=== PATIENT | female | born 1965 | race Hispanic/Latino ===

== ENCOUNTER 2023-11-27 17:37 | Inpatient (IN) | payer SELFPAY ==
--- OUTSIDE RECORDS SUMMARY | 2023-11-27 17:43 | XMS REPORT | Continuity of Care Document ---
Author Name Unknown Address [address] [facility] [address] [place] [address] [facility] Address [address] [facility] [place] [address] Care Team Providers Care Imaging Technologist Name Role Phone STACEY SYKES Primary Care Physician Unav ailable ALYSON BOURGEOIS Attending Clinician Unavailable BRUCE REED Attending Clinician Unavailable CATHY LOCO Attending Clinician Unavailable [email or web address]_S Attending Clinician Unavaila ble RADIOLOGY Attending Clinician Unavailable Radiology Attending Clinician Unavailable Doctor Unassigned, [place] Attending Clinician U navailable Stacey Bae Attending Clinician + TOMASZ SAAVEDRA Attending Clinician Unavailable LAB90 Attending Clinician Unavailable Pgy3 Attending Clinician Unavailable Dominga Aguirre MD Attending Clinician [phone] DOMINGA AGUIRRE Attending Clinician Unavailable Pham Short Attending Clinician [phone] PHAM REDDING Attending Clinician Unavailabl e STACEY SYKES Attending Clinician Unavail able Naya Moore Attending Clinician [phone] NAYA HOWARD Attending Clinician Unavailable Tony VELIZ, Catrina Carrillo Attending Clinician [phone] Trimester, [facility] Res-1st Attending Clinician Unavailable Dasha Rojas MD Attending Clinician [phone] Med PRICE, Yanni Williamson Attending Clinician Unav ailable Only, Adc Test Attending Clinician Unavailable Alyson Bourgeois MD Attending Clinician [phone] Latha Guzman Attending Clinician [phone] [facility] Unavailab Tommy VELIZ, Ximena Attending Clinician [phone] ALYSON BOURGEOIS Admitting Clinician Unavailable [email or web address]_S Admitting Clinician UnavailCELENA Grady Admitting Clinician Dwight graham Payers Payer Name Policy Type Policy Number Effective Date Expirati on Date Source [facility] [id number] 2018 00:00:00 [employer] [id number] 2022 00:00:00 Problems Condition Name Condition Details Condition Category Status Onset Date Resolution Date Last Treatment Date Treating Clinician Comments Source Hypothyroi dism Hypothyroi dism Disease Active 4-12 00:00: 00 Ximena Seybold - Externa l Pain pelvic Pain pelvic Disease Active 9-17 00:00: 00 [facility] Other general counseling and advice for contracept david management Other general counseling and advice for contracept david management Disease Active 8-31 00:00: 00 [facility] Fibroid Fibroid Disease Active 8-31 00:00: 00 [facility] Screening for colorectal cancer Screening for colorectal cancer Disease Active 7-29 00:00: 00 Overview: Formattin g of this note might be different from the original. Added automatic ally from request for surgery [id number] [facility] Obesity (BMI 30-39.9) Obesity (BMI 30-39.9) Disease Active 08-19 00:00: 00 [facility] Presence of intrauteri ne contracept david device Presence of intrauteri ne contracept david device Disease Active 08-19 00:00: 00 [facility] Allergies, Adverse Reactions, Alerts Allergy Name Allergy Type Status Severity Reaction(s) Onset Date Inactive Date Treating Clinician Comments Source NO KNOWN ALLERGIE S Drug Class Active [facility] Social History Social Habit Start Date Stop Date Quantity Comments Source History of tobacco use Cigarette Smoker Ximena Judy flores - External Exposure to SARS-CoV-2 (event) Not sure [facility] Gender identity [facility] Alcohol intake 2023-05-29 00:00:00 2023-05-29 00:00:00 Lifetime non-drinker (finding) Ximena Baxter - External Tobacco use and exposure 2022-09-25 00:00:00 2022-09-25 00:00:00 Smokeless tobacco non-user Ximena Baxter - External History of Social function 2021-01-29 00:00:00 2021-01-29 00:00:00 [facility] Sex Assigned At 1965 00:00:00 1965 00:00:00 Ximena Baxter - External Smoking Status Start Date Stop Date Source Ex-smoker 2022-09-25 00:00:00 2022-09-25 00:00:00 Keyana azevedo Sahil - External Never smoked tobacco [facility] Medications Ordered Medication Name Filled Medication Name Start Date Stop Date Current Medication? Ordering Clinician Indication Dosage Frequency Signature (SIG) Comments Components Source Diethylprop ion HCl CR 75 MG oral TABLET SR 24 HR 2022-06 13:41: 23 05-29 00:00 :00 No every 24 hours Ximena williamson Cholecalcif lance (Vitamin D) 50 MCG (2000 UT) oral Capsule 2022-06 13:31: 02 Yes 2000U 1 capsule (2,000 units total). Ximena williamson Ibuprofen (MOTRIN) 800 MG oral Tablet 2022-06 13:31: 02 Yes every 8 hours Ximena williamson Semaglutide -Weight Management (Wegovy) 1.7 MG/0.75ML subcutaneou s Solution Auto-inject or 2022-06 00:00: 00 Yes [id number] 1.7mg Inject 1.7 mg into the skin once a week. Ximena williamson Levothyroxi ne Sodium 25 MCG oral Tablet 2022-06 2-08 00:00: 00 Yes [id number] 25ug Take 1 tablet (25 mcg total) by mouth daily. Ximena williamson Mounjaro 10 MG/0.5ML subcutaneou s Solution Pen-injecto r 2022-06 1-16 00:00: 00 05-29 00:00 :00 No INJECT 1 INJECTION INTO THE SKIN ONCE A WEEK FOR 4 WEEKS. Ximena williamson Cholecalcif lance (Vitamin D) 50 MCG (1999 UT) oral Capsule 02-18 09:37: 52 Yes 2000U 1 capsule (2,000 units total). Ximena williamson Diethylprop ion HCl CR 75 MG oral TABLET SR 24 HR 02-18 09:37: 52 Yes every 24 hours Ximena williamson Ibuprofen (MOTRIN) 800 MG oral Tablet 02-18 09:37: 52 Yes every 8 hours Ximena williamson Semaglutide -Weight Management (Wegovy) 1.7 MG/0.75ML subcutaneou s Solution Auto-inject or 02-18 00:00: 00 05-29 00:00 :00 No [id number] 1.7mg Inject 1.7 mg into the skin once a week. Ximena williamson hydrOXYzine HCl 25 MG oral Tablet 8-23 00:00: 00 05-29 00:00 :00 No Ximena williamson Mounjaro 7.5 MG/0.5ML subcutaneou s Solution Pen-injecto r 11-19 00:00: 00 02-18 00:00 :00 No Ximena williamson Tirzepatide (Mounjaro) 2.5 MG/0.5ML subcutaneou s Solution Pen-injecto r 05 09:02: 12 11-18 00:00 :00 No See Admin Instructio ns Ximena williamson Cholecalcif lance (Vitamin D) 50 MCG (2000 UT) oral Capsule 11-18 09:02: 10 Yes 2000U 1 capsule (2,000 units total) Ximena williamson Diethylprop ion HCl CR 75 MG oral TABLET SR 24 HR 11-18 09:02: 10 Yes every 24 hours Ximena williamson Ibuprofen (MOTRIN) 800 MG oral Tablet 11-18 09:02: 10 Yes every 8 hours Ximena williamson Ondansetron HCl 4 MG oral Tablet 11-18 00:00: 00 Yes [id number] 4mg [id number] 3D Take 1 tablet (4 mg total) by mouth every 8 hours as needed for nausea Ximena williamson Semaglutide -Weight Management (Wegovy) 1 MG/0.5ML subcutaneou s Solution Auto-inject or 11-18 00:00: 00 02-18 00:00 :00 No [id number] 1mg Inject 1 mg into the skin once a week Ximena williamson Mounjaro 5 MG/0.5ML subcutaneou s Solution Pen-injecto r 11-18 00:00: 00 02-18 00:00 :00 No Ximena williamson Semaglutide -Weight Management (Wegovy) 0.5 MG/0.5ML subcutaneou s Solution Auto-inject or 11 00:00: 00 11-18 00:00 :00 No [id number] .5mg Inject 0.5 mg into the skin once a week Ximena williamson Metoclopram yessi HCl 10 MG oral Tablet 10-10 00:00: 00 Yes Ximena williamson Na Sulfate-K Sulfate-Mg Sulf (SUPREP BOWEL PREP KIT) 17.5-3.13-1 .6 GM/177ML oral Solution 10-10 00:00: 00 Yes Ximena williamson Vitamin D, Ergocalcife rol, 1.25 MG (66881 UT) oral Capsule 2023-0 4-18 00:00: 00 Yes [id number] 93119M Take 1 capsule (50,000 units total) by mouth once a week Ximena williamson Nitrofurant oin Monohyd Macro 100 MG oral Capsule 09-29 00:00: 00 02-18 00:00 :00 No Ximena williamson LEVOTHYROXI NE SODIUM OR 09-26 08:25: 42 09-26 00:00 :00 No Take by mouth Ximena williamson Ondansetron (ZOFRAN) 4 MG oral TABLET DISPERSIBLE 09-26 00:00: 00 Yes Ximena williamson Diethylprop ion HCl CR 75 MG oral TABLET SR 24 HR 09-26 00:00: 00 Yes [id number] 1{tbl} Take 1 tablet by mouth daily Ximena williamson Tirzepatide (Mounjaro) 2.5 MG/0.5ML subcutaneou s Solution Pen-injecto r 09-26 00:00: 00 11-18 00:00 :00 No [id number] 2.5mg Inject 0.5 mL (2.5 mg total) into the skin once a week Ximena williamson Ibuprofen (MOTRIN) 800 MG oral Tablet 09-02 00:00: 00 Yes Ximena williamson Levothyroxi ne Sodium 25 MCG oral Tablet 09-02 00:00: 00 Yes Ximena williamson norethindro ne 0.35 mg tablet 2020-06 00:00: 00 Yes [id number] .35mg Take 1 tablet by mouth daily. [facility] norethindro ne 0.35 mg tablet 02-26 00:00: 00 05-28 00:00 :00 No [id number] .35mg Take 1 tablet by mouth daily. [facility] Immunizations Ordered Immunization Name Filled Immunization Name Date Status Comments Source Shingles IM (Shingrix) 2022-11-18 00:00:00 Completed Ximena Huddleston Shingles IM (Shingrix) 2022-11-18 00:00:00 Completed Ximena Kimold - External Covid-19 Vaccine Moderna (Spikevax), Mrna-lnp, Nir Protein, Pf 2021-07-14 00:00:00 Completed Ximena Mcmahanybold - External Covid-19 Vaccine Moderna (Spikevax), Mrna-lnp, Nir Protein, Pf 2021-02-10 00:00:00 Completed Ximena Kimold - External Covid-19 Vaccine Moderna (Spikevax), Mrna-lnp, Nir Protein, Pf 2021-01-13 00:00:00 Completed Ximena Kimold - External Covid-19 Vaccine Moderna (Spikevax), Mrna-lnp, Nir Protein, Pf 2021-01-13 00:00:00 Completed Ximena Baxter - External Influenza, Seasonal, Injectable 2020-04-04 00:00:00 Completed Ximena Baxter - External Influenza, Seasonal, Injectable 2020-04-04 00:00:00 Completed Ximena Baxter - External Tdap- (Boostrix, Adacel) 2018-02-12 00:00:00 Completed Ximena Mcmahanybold - External Tdap- (Boostrix, Adacel) 2018-02-12 00:00:00 Completed Ximena Baxter - External Rubella 2008-10-24 00:00:00 Completed Ximena Kimold - External Rubella 2008-10-24 00:00:00 Completed Ximena Kimold - External Rubella 2008-10-24 00:00:00 Completed Ximena Kimold - External Rubella 2008-10-24 00:00:00 Completed Ximena Mcmahanybold - External Rubella 2008-10-24 00:00:00 Completed [facility] Rubella 2008-10-24 00:00:00 Completed [facility] Rubella 2008-10-24 00:00:00 Completed [facility] Rubella 2008-10-24 00:00:00 Completed [facility] Rubella 2008-10-24 00:00:00 Completed [facility] Rubella 2008-10-24 00:00:00 Completed [facility] Td (adult) 2008-06-16 00:00:00 Completed Ximena Seybold - External Td (adult) 2008-06-16 00:00:00 Completed Ximena Mcmahanybold - External Td (adult) 2008-06-16 00:00:00 Completed Ximena Mcmahanybold - External Td (adult) 2008-06-16 00:00:00 Completed Ximena ybold - External Td 2008-06-16 00:00:00 Completed [facility] TD, NOS 2008-06-16 00:00:00 Completed [facility] TD, NOS 2008-06-16 00:00:00 Completed [facility] TD, NOS 2008-06-16 00:00:00 Completed [facility] TD, NOS 2008-06-16 00:00:00 Completed [facility] TD, NOS 2008-06-16 00:00:00 Completed [facility] Td (adult) Unknown Completed Ximena Mcmahan ybold - External Rubella Unknown Completed Ximena ulloa - External Shingles IM (Shingrix) Unknown Completed Ximena Mcmahanybold - External Influenza, Seasonal, Injectable Unknown Completed Ximena ybold - External Covid-19 Vaccine Moderna (Spikevax), Mrna-lnp, Nir Protein, Pf Unknown Completed Ximena ybold - External Tdap- (Boostrix, Adacel) Unknown Completed Ximena Mcmahanybold - External Covid-19 Vaccine Moderna (Spikevax), Mrna-lnp, Nir Protein, Pf Unknown Completed Ximena Mcmahanybold - External Covid-19 Vaccine Moderna (Spikevax), Mrna-lnp, Nir Protein, Pf Unknown Completed Ximena ybold - External Vital Signs Vital Name Observation Time Observation Value Comments S ource Systolic blood pressure 2023-05-29 19:28:00 98 mm[Hg] Ximena Kimo ld - External Diastolic blood pressure 2023-05-29 19:28:00 60 mm[Hg] Ximena Kimo ld - External Heart rate 2023-05-29 19:28:00 72 /min Terrence Baxter - External Body temperature 2023-05-29 19:28:00 36.83 Caro Ximena Mcmahanybold - External Respiratory rate 2023-05-29 19:28:00 16 /min Ximena Mcmahanybold - External Body height 2023-05-29 19:28:00 160 cm Morena ey Seybold - External Body weight 2023-05-29 19:28:00 80.343 kg Morena ey Seybold - External BMI 2023-05-29 19:28:00 31.38 kg/m2 Morena ey Seybold - External Oxygen saturation in Arterial blood by Pulse oximetry 2023-05-29 19:28:00 98 /min Ximena Seybo ld - External Systolic blood pressure 2023-02-18 14:36:00 94 mm[Hg] Ximena Seybo ld - External Diastolic blood pressure 2023-02-18 14:36:00 62 mm[Hg] Ximena Seybo ld - External Heart rate 2023-02-18 14:36:00 74 /min Kelse y Seybold - External Body temperature 2023-02-18 14:36:00 37.06 Caro Ximena Seybold - External Respiratory rate 2023-02-18 14:36:00 15 /min Ximena Seybold - External Body height 2023-02-18 14:36:00 160 cm Morena ey Seybold - External Body weight 2023-02-18 14:36:00 86.637 kg Morena ey Seybold - External BMI 2023-02-18 14:36:00 33.83 kg/m2 Morena ey Seybold - External Oxygen saturation in Arterial blood by Pulse oximetry 2023-02-18 14:36:00 99 /min Ximena Seybo ld - External Systolic blood pressure 2022-11-18 13:58:00 104 mm[Hg] Ximena Seybo ld - External Diastolic blood pressure 2022-11-18 13:58:00 50 mm[Hg] Ximena Seybo ld - External Heart rate 2022-11-18 13:58:00 77 /min Kelse y Seybold - External Body temperature 2022-11-18 13:58:00 35.56 Caro Ximena Seybold - External Respiratory rate 2022-11-18 13:58:00 14 /min Ximena Seybold - External Body height 2022-11-18 13:58:00 160 cm Morena ey Seybold - External Body weight 2022-11-18 13:58:00 89.812 kg Morena ey Seybold - External BMI 2022-11-18 13:58:00 35.07 kg/m2 Morena ey Seybold - External Systolic blood pressure 2022-10-24 13:21:00 98 mm[Hg] Ximena Seybo ld - External Diastolic blood pressure 2022-10-24 13:21:00 66 mm[Hg] Ximena Seybo ld - External Heart rate 2022-10-24 13:21:00 80 /min Kelse y Seybold - External Body temperature 2022-10-24 13:21:00 36.28 Caro Ximena Seybold - External Respiratory rate 2022-10-24 13:21:00 14 /min Ximena Seybold - External Body height 2022-10-24 13:21:00 160 cm Morena ey Seybold - External Body weight 2022-10-24 13:21:00 92.987 kg Morena ey Seybold - External BMI 2022-10-24 13:21:00 36.31 kg/m2 Morena ey Seybold - External Systolic blood pressure 2022-09-26 13:22:00 100 mm[Hg] Ximena Seybo ld - External Diastolic blood pressure 2022-09-26 13:22:00 72 mm[Hg] Ximena Seybo ld - External Heart rate 2022-09-26 13:22:00 69 /min Kelse y Seybold - External Body temperature 2022-09-26 13:22:00 36.17 Caro Ximena Seybold - External Respiratory rate 2022-09-26 13:22:00 14 /min Ximena Seybold - External Body height 2022-09-26 13:22:00 160 cm Morena ey Seybold - External Body weight 2022-09-26 13:22:00 94.802 kg Morena ey Seybold - External BMI 2022-09-26 13:22:00 37.02 kg/m2 Morena ey Seybold - External Systolic blood pressure 2021-05-28 21:10:00 108 mm[Hg] [facility] Diastolic blood pressure 2021-05-28 21:10:00 74 mm[Hg] [facility] Heart rate 2021-05-28 21:10:00 71 /min [facility] Body temperature 2021-05-28 21:10:00 36 Caro [facility] Respiratory rate 2021-05-28 21:10:00 18 /min [facility] Body height 2021-05-28 21:10:00 157.5 cm [facility] Body weight 2021-05-28 21:10:00 90.175 kg [facility] BMI 2021-05-28 21:10:00 36.36 kg/m2 [facility] Procedures Procedure Date / Time Performed Performing Clinicia n Source ASSIGNMENT OF BENEFITS 2023-02-06 14:23:31 Docto r Unassigned, [place] [facility] REFERRAL- REQUEST/RESPONSE 2022-10-16 05:01:00 Doctor Unassigned, [place] [facility] Encounters Start Date/Time End Date/Time Encounter Type Admission Type Attending [facility] Care Department Encounter ID Source 2021-04-17 09:18:23 Outpatient R ALYSON BOURGEOIS [facility] [id number] [facility] 2023-08-28 09:30:00 2023-08-28 09:30:00 Outpatient BRUCE REED [id number] Ximena [facility] 2023-06-16 00:00:00 2023-06-16 00:00:00 Outpatient BRUCE REED [id number] Ximena [facility] 2023-05-29 13:30:00 2023-05-29 13:30:00 Outpatient BRUCE REED [id number] [facility] 2023-05-22 14:00:00 2023-05-22 14:00:00 Outpatient BRUCE REED [id number] Ximena [facility] 2023-05-22 00:00:00 2023-05-22 00:00:00 Outpatient CATHY LOCO [id number] Ximena [facility] 2023-05-20 09:30:00 2023-05-20 09:30:00 Outpatient BRUCE REED [id number] Ximena [facility] 2023-05-13 08:07:38 2023-05-13 08:07:38 Outpatient SFA SFA [id number] Alejandro Dennis 2023-04-12 00:00:00 2023-04-12 00:00:00 Outpatient [email or web address] [email or web address]_S [facility] [id number] [facility] 2023-02-26 13:00:00 2023-02-26 13:00:00 Outpatient BRUCE REED [id number] Ximena Baxter 2023-02-18 09:30:00 2023-02-18 09:30:00 Outpatient BRUCE REED [id number] Ximena juan manuel 2023-02-06 09:26:33 2023-02-06 23:59:00 Outpatient R RADIOLOGY [facility] [id number] [facility] 2023-02-06 09:26:33 2023-02-06 23:59:00 Hospital Encounter Radiology [facility] 1..840.114 350.1.13.10 4.2.7.2.686 [id number] [facility] 2023-02-06 00:00:00 2023-02-06 00:00:00 Orders Only Doctor Unassigned, [place] [facility] 1..840.114 350.1.13.10 4.2.7.2.686 [id number] [facility] 2023-02-05 08:00:31 2023-02-05 08:00:31 Outpatient SFA SFA [id number] Alejandro Dennis 2022-11-28 00:00:00 2022-11-28 00:00:00 Outpatient DEREK BRUCE WATTERS [id number] Ximena juan manuel 2022-11-27 00:00:00 2022-11-27 00:00:00 Telephone Stacey Sykes [facility] 1.2.840.114 350.1.13.10 4.2.7.2.686 [id number] [facility] 2022-11-18 09:30:00 2022-11-18 09:30:00 Outpatient BRUCE REED [id number] Ximena Baxter 2022-11-04 08:49:23 2022-11-04 08:49:23 Outpatient SFA SFA [id number] Alejandro Dennis 2022-10-29 07:42:15 2022-10-29 23:59:00 Outpatient R RADIOLOGY [facility] [id number] [facility] 2022-10-29 07:42:15 2022-10-29 23:59:00 Hospital Encounter Radiology [facility] 1.2.840.114 350.1.13.10 4.2.7.2.686 [id number] [facility] 2022-10-24 08:30:00 2022-10-24 08:30:00 Outpatient BRUCE REED [id number] Ximena [facility] 2022-10-16 00:00:00 2022-10-16 00:00:00 Orders Only Doctor Unassigned, [place] [facility] 1.2.840.114 350.1.13.10 4.2.7.2.686 [id number] [facility] 2022-10-03 00:00:00 2022-10-03 00:00:00 Outpatient TOMASZ SAAVEDRA [facility] [id number] 668 [facility] 2022-10-01 00:00:00 2022-10-01 00:00:00 Outpatient CATHY LOCO [id number] Ximena Baxter 2022-09-29 00:00:00 2022-09-29 00:00:00 Outpatient BRUCE REED [id number] Ximena Baxter 2022-09-26 09:25:00 2022-09-26 09:25:00 Outpatient LAB90 XIMENA WATTERS [id number] Ximena Baxter 2022-09-26 08:30:00 2022-09-26 08:30:00 Outpatient BRUCE REED [id number] Ximenarena Baxter 2022-09-02 08:04:56 2022-09-02 08:04:56 Outpatient [facility] [id number] Alejandro Dennis 2022-07-08 08:42:30 2022-07-08 08:42:30 Outpatient [facility] [id number] Alejandro Dennis 2022-06-24 15:16:27 2022-06-24 15:16:27 Outpatient [facility] [id number] Alejandro Dennis 2021-05-28 15:00:00 2021-05-28 16:49:44 Office Visit Pgy3 Dominga Aguirre [facility] 1.840.114 350.1.13.10 4.2.7.2.686 [id number] [facility] 2021-05-28 15:00:00 2021-05-28 16:49:44 Outpatient R DOMINGA AGUIRRE [facility] [id number] [facility] 2021-05-28 15:00:00 2021-05-28 15:00:00 Outpatient R DOMINGA AGUIRRE [facility] [id number] [facility] 2021-04-20 08:00:00 2021-04-20 08:00:00 Outpatient R ALYSON BOURGEOIS [facility] [id number] [facility] 2021-04-03 08:38:56 2021-04-03 23:59:00 Hospital Encounter WilfrdeoPham Pascale [facility] 1.2.840.114 350.1.13.10 4.2.7.2.686 [id number] [facility] 2021-04-03 08:37:50 2021-04-03 08:37:50 Hospital Encounter WilfredoPham Pascale [facility] 1.2.840.114 350.1.13.10 4.2.7.2.686 [id number] [facility] 2021-04-03 00:00:00 2021-04-03 00:00:00 Outpatient R PHAM REDDING [facility] [id number] [facility] 2021-03-28 00:00:00 2021-03-28 00:00:00 Telephone Pham Redding [facility] [employer]CHIT[facility] 1..840.114 350.1.13.10 4.2.7.2.686 [id number] [facility] 2021-03-27 09:10:01 2021-03-27 23:59:00 Hospital Encounter Stacey Sykes [facility] 1..840.114 350.1.13.10 4.2.7.2.686 [id number] [facility] 2021-03-27 09:00:00 2021-03-27 09:09:00 Hospital Encounter Stacey Sykes [facility] 1..840.114 350.1.13.10 4.2.7.2.686 [id number] [facility] 2021-03-27 00:00:00 2021-03-27 00:00:00 Outpatient R STACEY SYKES [facility] [id number] [facility] 2021-03-06 09:29:37 2021-03-06 10:08:51 Office Visit Naya Howard [facility] 1..840.114 350.1.13.10 4.2.7.2.686 [id number] [facility] 2021-03-06 09:30:00 2021-03-06 09:30:00 Outpatient R NAYA HOWARD [facility] [id number] [facility] 2021-03-06 00:00:00 2021-03-06 00:00:00 Prep [facility] 1.840.114 350.1.13.10 4.2.7.2.686 [id number] [facility] 2021-02-27 10:00:00 2021-02-27 10:00:00 Outpatient R NAYA HOWARD [facility] [id number] [facility] 2021-02-26 15:30:00 2021-02-26 15:30:00 Outpatient R [facility] [id number] [facility] 2021-02-26 13:40:02 2021-02-26 14:57:44 Office Visit Pgy3 Catrina Jimenez [facility] 1.0.114 350.1.13.10 4.2.7.2.686 [id number] [facility] 2021-02-26 13:40:02 2021-02-26 14:57:44 Office Visit Pgy3 Catrina Jimenez [facility] 1.840.114 350.1.13.10 4.2.7.2.686 [id number] [facility] 2021-02-22 00:00:00 2021-02-22 00:00:00 Telephone Stacey Sykes [facility] [employer] ARCHITECT [facility] 1.840.114 350.1.13.10 4.2.7.2.686 [id number] [facility] 2021-02-22 00:00:00 2021-02-22 00:00:00 Telephone Stacey Sykes [facility] [employer] ARCHITECT [facility] MATERNAL & CHILD [facility] 1.2840.114 350.1.13.10 4.2.7.2.686 [id number] [facility] 2021-02-20 06:36:01 2021-02-20 23:59:00 Hospital Encounter Stacey Sykes [facility] 1.2.840.114 350.1.13.10 4.2.7.2.686 [id number] [facility] 2021-02-20 06:36:01 2021-02-20 23:59:00 Hospital Encounter Stacey Sykes [facility] [id number] [facility] 2021-02-20 00:00:00 2021-02-20 00:00:00 Outpatient R STACEY SYKES [facility] [id number] [facility] 2021-02-13 10:32:13 2021-02-13 11:12:39 Office Visit Stacey Sykes [employer] [facility] [id number] 4.2.7.2.686 [id number] [facility] 2021-02-13 10:32:13 2021-02-13 11:12:39 Office Visit Stacey Sykes [facility] [employer] [facility] 1.2.840.114 350.1.13.10 4.2.7.2.686 [id number] [facility] 2021-02-13 10:45:00 2021-02-13 10:45:00 Outpatient R STACEY SYKES [facility] [id number] [facility] 2021-02-05 13:00:00 2021-02-05 23:59:00 Hospital Encounter Stacey Sykes [facility] 1.2.840.114 350.1.13.10 4.2.7.2.686 [id number] [facility] 2021-02-05 00:00:00 2021-02-05 00:00:00 Outpatient R STACEY SYKES [facility] [id number] [facility] 2021-02-01 00:00:00 2021-02-01 00:00:00 Telephone Stacey Sykes [facility] [employer] [facility] 1..114 350.1.13.10 4.2.7.2.686 [id number] [facility] 2021-01-29 15:05:53 2021-01-29 15:41:29 Office Visit Stacey Sykes [facility] [employer] [facility] 1..114 350.1.13.10 4.2.7.2.686 [id number] [facility] 2021-01-29 15:15:00 2021-01-29 15:15:00 Outpatient R STACEY SYKES [facility] [id number] [facility] 2021-01-29 00:00:00 2021-01-29 00:00:00 Orders Only Doctor Unassigned, [place] [facility] 1..114 350.1.13.10 4.2.7.2.686 [id number] [facility] 2020-04-24 08:32:44 2020-04-24 11:33:39 Office Visit Trimester, [facility] Res-1st Dasha Rojas [facility] 1.114 350.1.13.10 4.2.7.2.686 [id number] [facility] 2020-04-24 08:00:00 2020-04-24 08:00:00 Outpatient R [facility] [id number] [facility] 2020-04-24 00:00:00 2020-04-24 00:00:00 Orders Only Doctor Unassigned, [place] [facility] 1..114 350.1.13.10 4.2.7.2.686 [id number] [facility] 2020-01-31 08:00:00 2020-01-31 08:00:00 Outpatient R [facility] [id number] [facility] 2020-01-19 00:00:00 2020-01-19 00:00:00 Outpatient R STACEY SYKES [facility] [id number] [facility] 2020-01-18 00:00:00 2020-01-18 00:00:00 Letter (Out) [facility] 1.2840.114 350.1.13.10 4.2.7.2.686 [id number] [facility] 2020-01-18 00:00:00 2020-01-18 00:00:00 Telephone Naya Howard [facility] 1.0.114 350.1.13.10 4.2.7.2.686 [id number] [facility] 2020-01-18 00:00:00 2020-01-18 00:00:00 Telephone [facility] 1.2840.114 350.1.13.10 4.2.7.2.686 [id number] [facility] 2020-01-17 09:51:16 2020-01-17 10:06:16 Laboratory Only Only, Adc Test Alyson Bourgeois [facility] 1.2840.114 350.1.13.10 4.2.7.2.686 [id number] [facility] 2020-01-17 09:15:00 2020-01-17 09:15:00 Outpatient R ALYSON BOURGEOIS [facility] [id number] [facility] 2020-01-17 00:00:00 2020-01-17 00:00:00 Telephone Naya Howard [facility] 1..114 350.1.13.10 4.2.7.2.686 [id number] [facility] 2020-01-17 00:00:00 2020-01-17 00:00:00 Telephone Stacey Sykes [facility] 1..114 350.1.13.10 4.2.7.2.686 [id number] [facility] 2020-01-12 00:00:00 2020-01-12 00:00:00 Prep For [facility] 1..114 350.1.13.10 4.2.7.2.686 [id number] [facility] 2020-01-11 13:51:42 2020-01-11 16:48:43 Office Visit Alyson Bourgeois [facility] 1..114 350.1.13.10 4.2.7.2.686 [id number] [facility] 2020-01-11 13:45:00 2020-01-11 13:45:00 Outpatient R ALYSON BOURGEOIS [facility] [id number] [facility] 2020-01-11 00:00:00 2020-01-11 00:00:00 Orders Only Doctor Unassigned, [place] [facility] 1.114 350.1.13.10 4.2.7.2.686 [id number] [facility] 2020-01-10 00:00:00 2020-01-10 00:00:00 Telephone Latha Meadows [facility] 1..114 350.1.13.10 4.2.7.2.686 [id number] [facility] 2020-01-06 13:36:01 2020-01-06 14:20:13 Office Visit Carlos [facility] Resident Ximena Muir [facility] 1..114 350.1.13.10 4.2.7.2.686 [id number] [facility] 2020-01-06 13:00:00 2020-01-06 13:00:00 Outpatient R [facility] [id number] [facility] 2019-12-17 09:02:59 2019-12-17 09:54:43 Office Visit Stacey Sykes [facility] [employer] ARCHITECT [facility] 1.2.840.114 350.1.13.10 4.2.7.2.686 [id number] [facility] 2019-12-17 09:15:00 2019-12-17 09:15:00 Outpatient R STACEY SYKES [facility] [id number] [facility] 2019-12-17 00:00:00 2019-12-17 00:00:00 Orders Only Doctor Unassigned, [place] [facility] 1.2.840.114 350.1.13.10 4.2.7.2.686 [id number] [facility] 2019-12-16 08:15:00 2019-12-16 08:15:00 Outpatient R PHAM REDDING [facility] [id number] [facility] Results Test Description Test Time Test Comments Results Result Co mments Source TSH, THIRD [id number] 05:52:53* Test Item Value Reference Range Interpretation Comme [facility] TSH, THIRD GENERATION (test code = 2821) 2.990 UIU/ML 0.400-4.100 UNLESS OTHERWISE INDICATED, ALL TESTING PERFORMED AT [facility] [employer] [address] [place] [address] LOG SNAKER: CHARLENE SAMPSON M.D. CLIA NUMBER [id number] [facility] [place]. [id number] TSH, THIRD [id number] 06:56:01* Test Item Value Reference Range Interpretation Comme [facility] TSH, THIRD GENERATION (test code = 2821) 3.650 UIU/ML 0.400-4.100 UNLESS OTHERWISE INDICATED, ALL TESTING PERFORMED AT [facility] [address] [place] [address] LOG SNAKER: CHARLENE SAMPSON M.D. CLIA NUMBER [id number] [place]. [id number] OCCULT BLD,FECAL,IMMUNOASSAY [id number] 12:44:20* Test Item Value Reference Range Interpretation Comme nts OCCULT BLD, FECAL (test code = 40752) NEGATIVE NEGATIVE [facility] has important pathology staff changes effective 08/14/2022. New pathology staff will provide uninterrupted, excellent patient care and clinical consultation. See URL: [email or web address]. UNLESS OTHERWISE INDICATED, ALL TESTING PERFORMED AT [facility] [address] [place] [address] LOG SNAKER: CHARLENE SAMPSON M.D. CLIA NUMBER [id number] [place]. [id number] TSH, THIRD [id number] 05:25:24* Test Item Value Reference Range Interpretation Comme nts TSH, THIRD GENERATION (test code = 2821) 4.970 UIU/ML 0.400-4.100 H FREE T4 (THYROXINE)2022-09-03 05:25:24* Test Item Value Reference Range Interpretation Comme nts FREE T4 (THYROXINE) (test code = 2823) 1.12 NG/DL 0.80-1.90 [facility] has impo rtant pathology staff changes effective 08/14/2022. New pathology staff will provide uninterrupted, excellent patient care and clinical consultation. See URL: [email or web address]. UNLESS OTHERWISE INDICATED, ALL TESTING PERFORMED AT [facility] [address] [place] [address] LOG SNAKER: CHARLENE SAMPSON M.D. CLIA NUMBER [id number] [place]. [id number] FREE T4 (THYROXINE)2022-07-09 04:05:47* Test Item Value Reference Range Interpretation Comme nts FREE T4 (THYROXINE) (test code = 2823) 0.99 NG/DL 0.80-1.90 UNLESS OTHERWISE INDICATED, ALL TESTING PERFORMED [facility] PATHOLOGY [employer] [address] [place] [address] LOG SNAKER: LYNNE FUENTES M.D. CLIA NUMBER [id number] [place]. [id number] TSH, THIRD [id number] 06:48:52* Test Item Value Reference Range Interpretation Comme nts TSH, THIRD GENERATION (test code = 2821) 4.710 UIU/ML 0.400-4.100 H UNLESS OTHERWISE INDICATED, ALL TESTING PERFORMED [facility] [employer] [address] [place] [address] LOG SNAKER: LYNNE FUENTES M.D. CLIA NUMBER [id number] [facility] [place]. [id number] CBC W/AUTO DIFF WITH [id number] 03:11:12* Test Item Value Reference Range Interpretation Comme nts WBC (test code = 1001) 8.6 K/UL 3.5-11.0 RBC (test code = 1002) 4.52 M/UL 3.80-5.40 HEMOGLOBIN (test code = 1003) 14.1 G/DL 11.5-15.5 HEMATOCRIT (test code = 1004) 41.0 % 34.0-45.0 MCV (test code = 1005) 90.7 fL 80.0-99.0 MCH (test code = 1006) 31.2 PG 25.0-33.0 MCHC (test code = 1007) 34.4 G/DL 31.0-36.0 RDW (test code = 1038) 13.6 % 11.5-15.0 NEUTROPHILS (test code = 1008) 67.3 % LYMPHOCYTES (test code = 1010) 24.7 % MONOCYTES (test code = 1011) 6.0 % EOSINOPHILS (test code = 1012) 1.3 % BASOPHILS (test code = 1013) 0.5 % IMMATURE GRANULOCYTES (test code = 1036) 0.2 % NUCLEATED RBCS (test code = 1065) 0.0 /100 WBC'S See_Comment [Automated messa ge] The system which generated this result transmitted reference range: 0.0. The reference range was not used to interpret this result as normal/abnormal. PLATELET COUNT (test code = 1015) 328 K/UL 130-400 ABSOLUTE NEUTROPHILS (test code = 1066) 5.77 K/UL 1.50-7.50 ABSOLUTE LYMPHOCYTES (test code = 1067) 2.12 K/UL 1.00-4.00 ABSOLUTE MONOCYTES (test code = 1068) 0.51 K/UL 0.20-1.00 ABSOLUTE EOSINOPHILS (test code = 1040) 0.11 K/UL 0.00-0.50 ABSOLUTE BASOPHILS (test code = 1069) 0.04 K/UL 0.00-0.20 ABS IMMATURE GRANULOCYTES (test code = 1020) 0.02 K/UL 0.00-0.10 ABS NUCLEATED RBCS (test code = 96170) 0.00 K/UL 0.00-0.11
[2023-11-27] MEDS ORDERED: Meropenem 1000 MG/VIAL IV ONE (18:19)
[2023-11-27] MEDS ORDERED: NA CHLORIDE 0.9% 100 ML ONE (18:19)
[2023-11-27 18:25] LABS: Absolute Eosinophils 0.1 K/uL (0-0.5); Absolute Lymphocytes (CBC) 1.7 K/uL (0.7-4.9); Absolute Neutrophil 4.5 K/uL (1.8-8.0); Basophils % 0.6 % (0-1.3); Hematocrit 35.6 % (36.0-45.0); Hemoglobin 12.4 g/dL (12.0-15.0); Lymphocytes % 22.5 % (15.3-44.8); MCH 31.6 pg (27.0-35.0); MCHC 34.9 g/dL (32.0-36.0); MCV 90.5 fL (80-100); MPV 6.6 fL (7.6-11.3); Monocytes % 13.5 % (3.3-12.3); Neutrophils % 61.4 % (41.7-73.7); Nucleated Red Blood Cells % 0.1 % (0-0); Platelets 324 thou/uL (152-406); RBC Red Blood Cell Count 3.94 M/uL (3.86-4.86); Red Cell Distribution Width 14.1 % (12.1-15.2)
[2023-11-27 18:29] LABS: PT Prothrombin Time 12.3 SECONDS (9.5-12.5); PTT, Activated Partial Thromb 32.1 SECONDS (24.3-36.9); Protime INR 1.12
[2023-11-27 18:45] LABS: Albumin 3.3 g/dL (3.4-5.0); Albumin/Globulin Ratio 0.7 (1.1-1.8); Anion Gap 7.4 mEq/L (5.0-15.0); Bilirubin Total 0.5 mg/dL (0.2-1.0); Potassium 3.4 mEq/L (3.5-5.1); Protein, Total 8.3 g/dL (6.4-8.2)
--- NOTE | 2023-11-27 19:52 | RAD REPORT ---
EXAM DESCRIPTION: CT - Abdomen Pelvis W Contrast - 11/27/2023 7:05 pm CLINICAL HISTORY: flank pain, r/o pyelonephritis COMPARISON: No comparisons TECHNIQUE: Thin cut axial CT imaging of the abdomen and pelvis was performed following intravenous a dministration of 100 mL Isovue 300. Multiplanar reformats were generated and reviewed. All CT scans are performed using dose optimization technique as appropriate and may include automated exposure control or mA/KV adjustment according to patient size. FINDINGS: No suspicious findings in the lung bases. The liver, spleen, adrenal glands, and pancreas show no suspicious findings. Gallbladder and biliary tree are also without suspicious finding. Small focal cortical regions of patchy hypoenhancement in the right kidney. Mild perinephric fat stra nding. No radiopaque calculi or suspicious renal mass. Mild prominence of the renal pelvis bilaterall y, suggesting mild hydronephrosis. No hydroureter bilaterally. No dilated bowel loops or bowel wall thickening. Appendix is unremarkable. No free air, free fluid or inflammatory stranding. Supraumbilical lobulated midline fat containing ventral hernia, largest comp onent measures 4.5 cm. No suspicious mass or bulky lymphadenopathy. The urinary bladder is without si gnificant finding. No suspicious bony findings. IMPRESSION: Patchy cortical regions of hypoenhancement in the right kidney, suggesting mild pyelonep hritis. Mild prominence of the renal pelvis bilaterally, may relate to mild hydronephrosis or extrarenal pelv es, without evidence of obstruction. Supraumbilical ventral fat containing hernias.
--- NOTE | 2023-11-27 20:05 | ER ---
Nurse's Notes [facility] Name: Jaleesa Benitez Age: 58 yrs Sex: Female : 1965 Arrival Date: 11/27/2023 Time: 17:37 Bed 20 Private MD: Diagnosis: Pyelonephritis acute-ESBL Presentation: 11/26 17:50 Chief complaint: Patient states: seen recently in ER and diagnosed with UTI. Urine ss culture report showed that organism is ESBL. Pt came back to ER for admission/ treatment of UTI. Denies fever, report bilateral flank pain. Coronavirus screen: Client denies travel out of the [place] in the last 14 days. Ebola Screen: Patient denies exposure to infectious person. Patient denies travel to an Ebola-affected area in the 21 days before illness onset. Initial Sepsis Screen: Does the patient meet any 2 criteria? No. Patient's initial sepsis screen is negative. Does the patient have a suspected source of infection? No. Patient's initial sepsis screen is negative. Risk Assessment: Do you want to hurt yourself or someone else? Patient reports no desire to harm self or others. Onset of symptoms is unknown. 17:50 Method Of Arrival: Ambulatory ss 17:50 Acuity: LIBORIO 3 ss Historical: - Allergies: 17:51 No Known Allergies; ss - PMHx: 17:51 Hypothyroidism; ss - PSHx: 17:51 hernia repair; ss - Immunization history:: Adult Immunizations unknown. - Infectious Disease History:: Denies. - Social history:: Smoking status: unknown. Screenin:15 [facility] ED Fall Risk Assessment (Adult) History of falling in the last 3 months, aa5 including since admission No falls in past 3 months (0 pts) Confusion or Disorientation No (0 pts) Intoxicated or Sedated No (0 pts) Impaired Gait No (0 pts) Mobility Assist Device Used No (0 pt) Altered Elimination No (0 pt) Score/Fall Risk Level 0 - 2 = Low Risk Oriented to surroundings, Maintained a safe environment, Educated pt \T\ family on fall prevention, incl call for assistance when getting out of bed. Abuse screen: Denies threats or abuse. Nutritional screening: No deficits noted. Tuberculosis screening: No symptoms or risk factors identified. Assessment: 18:15 General: Appears comfortable, Behavior is calm, cooperative. Pain: Complains of pain in aa5 left low back, left mid back, right mid back and right low back Pain currently is 6 out of 10 on a pain scale. Quality of pain is described as aching, Is continuous. Neuro: Level of Consciousness is awake, alert, obeys commands, Oriented to person, place, time, situation. Cardiovascular: Heart tones S1 S2 present Patient's skin is warm and dry. Rhythm is regular. Respiratory: Airway is patent Respiratory effort is even, unlabored, Respiratory pattern is regular, symmetrical. GI: Abdomen is round non-distended, Bowel sounds present X 4 quads. Abd is soft and non tender X 4 quads. Reports nausea, Patient currently denies vomiting. : Denies burning with urination, inability to void, urinary frequency, urgency. EENT: No signs and/or symptoms were reported regarding the EENT system. Derm: Skin is pink, warm \T\ dry. Musculoskeletal: Range of motion: intact in all extremities. 18:35 Reassessment: Patient is alert, oriented x 3, equal unlabored respirations, skin aa5 warm/dry/pink. Pt given cup of water. . 19:00 General: Appears comfortable, Behavior is calm, cooperative. Pain: Denies pain. Neuro: ha1 Level of Consciousness is awake, alert, obeys commands, Oriented to person, place, time, situation. Cardiovascular: Patient's skin is warm and dry. Respiratory: Airway is patent Respiratory effort is even, unlabored, Respiratory pattern is regular, symmetrical. : Reports UTI Denies burning with urination, inability to void, urinary frequency, urgency. Musculoskeletal: Circulation, motion, and sensation intact. Range of motion: intact in all extremities. 20:00 Reassessment: Patient and/or family updated on plan of care and expected duration. Pain ha1 level reassessed. Patient is alert, oriented x 3, equal unlabored respirations, skin warm/dry/pink. 21:00 Reassessment: Patient and/or family updated on plan of care and expected duration. Pain ha1 level reassessed. Patient is alert, oriented x 3, equal unlabored respirations, skin warm/dry/pink. Vital Signs: 17:50 BP 130 / 81; Pulse 74; Resp 16; Temp 98.6(TE); Pulse Ox 97% on R/A; Weight 81.65 kg; ss Height 5 ft. 3 in. ; Pain 7/10; 18:35 BP 108 / 80; Pulse 66; Resp 18 S; Temp 97.8(TE); Pulse Ox 99% on R/A; aa5 19:25 BP 125 / 55; Pulse 71; Resp 17 S; Pulse Ox 100% on R/A; ha1 20:00 BP 107 / 79; Pulse 65; Resp 18 S; Pulse Ox 100% on R/A; ha1 21:00 BP 106 / 84; Pulse 68; Resp 17 S; Pulse Ox 98% on R/A; ha1 17:50 Body Mass Index 31.89 (81.65 kg, 160.02 cm) ss 17:50 Pain Scale: Adult ss ED Course: 17:39 Patient arrived in ED. im 17:46 Pauly Clements FNP-C is PHCP. kb 17:46 Dominick Villegas MD is Attending Physician. kb 17:51 Triage completed. ss 18:00 Ragini Devries, DEE is Primary Nurse. aa5 18:14 EKG done, by ED staff, reviewed by Pauly BARAHONA. jg11 18:14 Inserted saline lock: 20 gauge in right antecubital area, using aseptic technique. aa5 18:14 Patient has correct armband on for positive identification. Placed in gown. Bed in low jg11 position. Call light in reach. Side rails up X 1. Side rails up X2. Warm blanket given. Client placed on continuous cardiac and pulse oximetry monitoring. NIBP monitoring applied. meat butcher on. Pulse ox on. NIBP on. 18:16 Initial lab(s) drawn, by me, sent to lab. First set of blood cultures drawn by me. aa5 18:30 Second set of blood cultures drawn by me. aa5 19:00 Arm band placed on right wrist. ha1 19:05 Report given to DEE Hodge. aa5 19:06 CT Abd/Pelvis - IV Contrast Only In Process Unspecified. EDMS 20:04 Ganesh Garrett MD is Hospitalizing Provider. kb 20:05 Urinalysis w/ reflexes Sent. pc2 21:56 No provider procedures requiring assistance completed. Patient admitted, IV remains in ha1 place. 21:56 Provided Education on: need for admit. ha1 Administered Medications: 18:31 Drug: Meropenem IV 1 grams IV at calculated rate once; (mix in NS 100 mL) Route: IV; aa5 Rate: calculated rate; Site: right antecubital; 19:04 Follow up: IV Status: Completed infusion aa5 Medication: 18:45 VIS not applicable for this client. aa5 Outcome: 20:04 Decision to Hospitalize by Provider. kb 21:57 Admitted to Med/surg accompanied by tech, via wheelchair, room 228, with chart, ha1 21:57 Condition: stable 21:57 Instructed on the need for admit, Demonstrated understanding of instructions, 21:58 Patient left the ED. ha1 Signatures: Dispatcher [employer] EDMS Pauly Clements, HAY-C TOOL AND CUTTER GRINDER-Ragini Patrick, RN RN aa5 Christa Kay, RN RN ss Ayesha Valencia RN RN ha1 Verona Leon Jordan jg11 Emilie almanza, RN RN pc2
--- NOTE | 2023-11-27 20:05 | EDPHYS ---
Physician Documentation [facility] Name: Jaleesa Benitez Age: 58 yrs Sex: Female : 1965 Arrival Date: 11/27/2023 Time: 17:37 Bed 20 Private MD: ED Physician Dominick Villegas HPI: 11/26 20:09 This 58 yrs old Female presents to ER via Ambulatory with complaints of kb Urinary Problem, Back Pain. 21:43 Pt is a 58 year old female who presents for bilateral flank pain. Pt was seen here 2 kb days ago for subjective fever and malaise, diagnosed with pyelonephritis and put on cipro. Pt's urine culture came back today positive for ESBL. Pt was called and told to return for IV antibiotics. Pt denies fever, urinary symptoms. . Historical: - Allergies: 17:51 No Known Allergies; ss - PMHx: 17:51 Hypothyroidism; ss - PSHx: 17:51 hernia repair; ss - Immunization history:: Adult Immunizations unknown. - Infectious Disease History:: Denies. - Social history:: Smoking status: unknown. ROS: 21:43 Constitutional: As per HPI kb Exam: 21:43 Constitutional: This is a well developed, well nourished patient who is awake, alert, kb and in no acute distress. Head/Face: Normocephalic, atraumatic. ENT: Moist Mucous membranes Cardiovascular: Regular rate Respiratory: Respirations even and unlabored. No increased work of breathing. Talking in full sentences Abdomen/GI: Soft, non-tender. No distention Skin: Warm, dry with normal turgor. Normal color. MS/ Extremity: Pulses equal, no cyanosis. Neurovascular intact. Full, normal range of motion. Neuro: Awake and alert, GCS 15, oriented to person, place, time, and situation. Moves all extremities. Normal gait. 21:43 Back: CVA tenderness, that is mild, is noted bilaterally, 11/27 00:06 ECG was reviewed by the Attending Physician. kb Vital Signs: 11/26 17:50 BP 130 / 81; Pulse 74; Resp 16; Temp 98.6(TE); Pulse Ox 97% on R/A; Weight 81.65 kg; ss Height 5 ft. 3 in. ; Pain 7/10; 18:35 BP 108 / 80; Pulse 66; Resp 18 S; Temp 97.8(TE); Pulse Ox 99% on R/A; aa5 19:25 BP 125 / 55; Pulse 71; Resp 17 S; Pulse Ox 100% on R/A; ha1 20:00 BP 107 / 79; Pulse 65; Resp 18 S; Pulse Ox 100% on R/A; ha1 21:00 BP 106 / 84; Pulse 68; Resp 17 S; Pulse Ox 98% on R/A; ha1 17:50 Body Mass Index 31.89 (81.65 kg, 160.02 cm) ss 17:50 Pain Scale: Adult ss MDM: 17:46 Patient medically screened. kb 21:43 Differential diagnosis: nephrolithiasis, pyelonephritis, UTI. Data reviewed: vital kb signs, nurses notes. Consideration of Admission/Observation Patient was admitted/placed on observation. Escalation of care including admission/observation considered. Management of patient was discussed with the following: Hospitalist: Dr Garrett accepts pt for admission. Historians other than the Patient: Spouse/Significant Other: spouse. External Records Reviewed: Culture report reviewed. Counseling: I had a detailed discussion with the patient and/or guardian regarding the historical points, exam findings, and any diagnostic results supporting the discharge/admit diagnosis, lab results, radiology results, the need for further work-up and treatment in the hospital. 11/26 17:48 Order name: Blood Culture Adult (2) kb 11/26 17:48 Order name: CBC with Diff; Complete Time: 18:27 kb 11/26 17:48 Order name: CMP; Complete Time: 18:45 kb 11/26 17:48 Order name: Lactate w/ 2H reflex if indic.; Complete Time: 18:49 kb 11/26 17:48 Order name: Protime (+inr); Complete Time: 18:45 kb 11/26 17:48 Order name: Ptt, Activated; Complete Time: 18:45 kb 11/26 17:48 Order name: Urinalysis w/ reflexes; Complete Time: 20:09 kb 11/26 20:16 Order name: Urinalysis w/ reflexes EDMS 11/26 20:16 Order name: CBC with Automated Diff EDMS 11/26 20:16 Order name: CBC with Automated Diff EDMS 11/26 20:16 Order name: Comprehensive Metabolic Panel EDMS 11/26 20:16 Order name: Comprehensive Metabolic Panel [facility] 11/26 18:00 Order name: CT Abd/Pelvis - IV Contrast Only; Complete Time: 20:00 kb 11/26 17:48 Order name: EKG; Complete Time: 17:49 kb 11/26 17:48 Order name: Cardiac monitoring; Complete Time: 18:18 kb 11/26 17:48 Order name: EKG - Nurse/Tech; Complete Time: 18:18 kb 11/26 17:48 Order name: IV Saline Lock - Large Bore; Complete Time: 18:18 kb 11/26 17:48 Order name: Labs collected and sent; Complete Time: 18:18 kb 11/26 17:48 Order name: O2 Per Protocol; Complete Time: 18:18 kb 11/26 17:48 Order name: O2 Sat Monitoring; Complete Time: 18:18 kb 11/26 17:48 Order name: Vital Signs; Complete Time: 18:18 kb EC/14 00:06 Rate is 74 beats/min. Rhythm is regular. QRS Dorr is Normal. NV interval is normal at kb 154 msec. QRS interval is normal at 86 msec. QT interval is normal at 410 msec. Administered Medications: 11/26 18:31 Drug: Meropenem IV 1 grams IV at calculated rate once; (mix in NS 100 mL) Route: IV; aa5 Rate: calculated rate; Site: right antecubital; 19:04 Follow up: IV Status: Completed infusion aa5 Disposition Summary: 11/27/23 20:04 Hospitalization Ordered Notes: Hospitalization Status: Inpatient Admission kb Provider: Ganesh Garrett Location: Telemetry/MedSurg (Inpatient) kb Condition: Stable kb Problem: new kb Symptoms: are unchanged kb Bed/Room Type: Standard Room Assignment: 228(11/27/23 20:21) rv1 Diagnosis - Pyelonephritis acute - ESBL kb Forms: - Medication Reconciliation Form kb - SBAR form kb - Leadership Thank You Letter kb Signatures: Dispatcher [employer] [facility] Pauly Clements FNP-C FNP-Ragini Patrick, RN RN aa5 Christa Kay, DEE RN ss Ayesha Valencia RN RN ha1 Fidelia Oacmpo rv1 Corrections: (The following items were deleted from the chart) 18:30 17:48 Accucheck ordered. kb aa5 20:21 20:04 kb rv1
[2023-11-27 20:09] LABS: Specific Gravity 1.029 (1.005-1.030); Urine Bilirubin NEGATIVE (Negative); Urine Blood Negative (Negative); Urine Clarity Clear (Clear); Urine Color Colorless (Yellow); Urine Glucose NEGATIVE (Negative); Urine Ketones NEGATIVE (Negative); Urine Microscopic Reflex YN NO UMIC; Urine Nitrite NEGATIVE (Negative); Urine Protein NEGATIVE (Negative); Urine Urobilinogen Normal (Normal); Urine pH 6.5 (5.0-7.0)
[2023-11-27] MEDS ORDERED: ACETAMINOPHEN 325 MG TABLET PO PRN (20:11)
--- NOTE | 2023-11-27 20:14 | P.HP ---
Certification for Inpatient Patient admitted to: Inpatient With expected LOS: >2 Midnights Practitioner: I am a practitioner with admitting privileges, knowledge of patient current condition, hospital course, and medical plan of care. Services: Services provided to patient in accordance with Admission requirements found in Title 42 Section 412.3 of the Code of Federal Regulations Patient History Date of Service: 11/27/23 Reason for admission: UTI History of Present Illness: 58 yrs old Female with past medical history of hypothyroidism who was seen in the ER 2 days ago with flank pain bilaterally which has been progressively getting worse associated with surgery fever, and malaise and was diagnosed with pyelonephritis and was treated with Cipro and discharged home. Her urine culture came back positive for ESBL and was called back for IV antibiotic. Patient still has flank pains. Denies any dysuria. No nausea vomiting or diarrhea. Denies any chest pain or shortness of breath. Patient was assessed in the ER and was started on meropenem for ESBL and was admitted for further management Allergies No Known Allergies Allergy (Unverified 11/27/23 22:01) Home medications list reviewed: Yes - Past Medical/Surgical History Past Medical History: Reviewed- Non-Contributory -: Hypothyroidism Past Surgical History: Reviewed- Non-Contributory - Family History Family History: Reviewed- Non-Contributory - Social History Smoking Status: Never smoker Review of Systems 10-point ROS is otherwise unremarkable Physical Examination - Vital Signs Temperature: 97.2 F Blood Pressure: 118/72 Pulse: 78 Respirations: 18 Pulse Ox (%): 94 - Physical Exam General: Alert, In no apparent distress, Oriented x3 HEENT: Atraumatic, Normocephalic Neck: Supple, 2+ carotid pulse no bruit Respiratory: Clear to auscultation bilaterally, Normal air movement Cardiovascular: Normal pulses, Regular rate/rhythm, Normal S1 S2 Capillary refill: <2 Seconds Gastrointestinal: Soft and benign, W/out hepatosplenomegaly Musculoskeletal: No clubbing, No swelling Integumentary: No rashes, No breakdown, No tenderness/swelling Neurological: Normal speech, Normal strength at 5/5 x4 extr, Cranial nerves 3-12 intact, Normal reflexes 2+ Lymphatics: No axilla or inguinal lymphadenopathy Urinary: Other (Flank tenderness ) - Studies Laboratory Data (last 24 hrs) 11/27/23 11/27/23 11/27/23 18:16 18:16 18:16 WBC 7.40 Hgb 12.4 Hct 35.6 L Plt Count 324 PT 12.3 INR 1.12 APTT 32.1 Sodium 138 Potassium 3.4 L BUN 11 Creatinine 0.79 Glucose 117 H Total Bilirubin 0.5 AST 33 ALT 73 H Alkaline Phosphatase 165 H Assessment and Plan - Problems (Diagnosis) (1) Pyelonephritis Current Visit: Yes Status: Acute Plan: Pyelonephritis Urine culture positive for ESBL Was treated with Cipro initially without response Started on meropenem Monitor closely IV hydration Hypokalemia Replace potassium Hypothyroidism Continue home medications GI/DVT prophylaxis Advanced directive full code Discharge Plan: Home Plan to discharge in: Greater than 2 days - Advance Directives Does patient have a Living Will: No Does patient have a Durable POA for Healthcare: No - Code Status/Comfort Care Code Status: Full Code Time Spent Managing Pts Care (In Minutes): 48
[2023-11-27] MEDS ORDERED: HYDROCODONE/APAP 10/325 TAB PO PRN (22:19)
[2023-11-27] MEDS ORDERED: MORPHINE 4 MG/ML SYR IV PRN (22:19)
[2023-11-27] MEDS: HYDROCODONE/APAP 10/325 TAB PO PRN (22:58)
[2023-11-27] MEDS: ONDANSETRON 4 MG/2 ML VIAL IV PRN (22:58)
[2023-11-27] MEDS: NA CHLORIDE 0.9% 1,000 ML IV SCH (22:59)
[2023-11-28 00:41] VITALS: BMI 31.8
[2023-11-28] MEDS: Meropenem 500 MG in NA CHLORIDE 0.9% 100 ML IV SCH (01:48)
[2023-11-28 03:03] LABS: Absolute Eosinophils 0.1 K/uL (0-0.5); Absolute Lymphocytes (CBC) 1.9 K/uL (0.7-4.9); Absolute Monocytes 0.8 K/uL (0.1-1.3); Absolute Neutrophil 3.9 K/uL (1.8-8.0); Basophils % 0.7 % (0-1.3); Eosinophils % 2.2 % (0-4.4); Hematocrit 32.6 % (36.0-45.0); Hemoglobin 11.6 g/dL (12.0-15.0); Lymphocytes % 28.1 % (15.3-44.8); MCH 32.3 pg (27.0-35.0); MCHC 35.6 g/dL (32.0-36.0); MCV 90.8 fL (80-100); MPV 6.7 fL (7.6-11.3); Monocytes % 12.1 % (3.3-12.3); Neutrophils % 56.9 % (41.7-73.7); Nucleated Red Blood Cells % 0.1 % (0-0); Platelets 298 thou/uL (152-406); RBC Red Blood Cell Count 3.59 M/uL (3.86-4.86); Red Cell Distribution Width 13.8 % (12.1-15.2)
[2023-11-28 03:31] LABS: Albumin 2.8 g/dL (3.4-5.0); Albumin/Globulin Ratio 0.7 (1.1-1.8); Bilirubin Total 0.4 mg/dL (0.2-1.0); Globulin 4.1 g/dL (2.3-3.5); Protein, Total 6.9 g/dL (6.4-8.2)
[2023-11-28] MEDS: ENOXAPARIN 40 MG/0.4 ML SQ SCH (08:19)
--- NOTE | 2023-11-28 09:55 | P.PN ---
Subjective Date of Service: 11/30/23 Chief Complaint: UTI Admitted with acute pyelonephritis, recently treated with Cipro, failed outpatient antibiotics, urine culture come back ESBL, transition to IV Merrem, pain control as needed analgesics <Chandrika Matthews - Last Filed: 11/30/23 14:07> Date of Service: 11/28/23 <GoncalvesElder Lopezl - Last Filed: 12/01/23 07:23> Review of Systems Per HPI <Chandrika Matthews - Last Filed: 11/30/23 14:07> Physical Examination - Vital Signs Temperature: 97.3 F Blood Pressure: 95/63 Pulse: 60 Respirations: 15 Pulse Ox (%): 97 - Physical Exam General: Alert, In no apparent distress, Oriented x3 HEENT: Atraumatic, Normocephalic Neck: Supple, 2+ carotid pulse no bruit Respiratory: Clear to auscultation bilaterally, Normal air movement Cardiovascular: Normal pulses, Regular rate/rhythm Capillary refill: <2 Seconds Gastrointestinal: Normal bowel sounds, Other (Flank tenderness) Musculoskeletal: No clubbing Neurological: Normal speech - Studies Laboratory Data (last 24 hrs) 11/27/23 11/27/23 11/27/23 18:16 18:16 18:16 WBC 7.40 Hgb 12.4 Hct 35.6 L Plt Count 324 PT 12.3 INR 1.12 APTT 32.1 Sodium 138 Potassium 3.4 L BUN 11 Creatinine 0.79 Glucose 117 H Total Bilirubin 0.5 AST 33 ALT 73 H Alkaline Phosphatase 165 H <Chandrika Matthews - Last Filed: 11/30/23 14:07> Assessment And Plan - Plan Acute pyelonephritis Failed outpatient antibiotic Cipro Urine culture positive for ESBL Was treated with Cipro initially without response Started on meropenem Monitor closely IV hydration as needed analgesia Hypokalemia Replace potassium Trend electrolyte Microcytic anemia Trend H&H 12.411.6 Hypothyroidism Continue home medications GI/DVT prophylaxis Advanced directive full code Discharge Plan: Home - Code Status/Comfort Care Code Status: Full Code Critical Care: No Time Spent Managing PTS Care (In Minutes): 35 <Chandrika Matthews - Last Filed: 11/30/23 14:07> Date of Service: 11/28/23 Patient was seen and examined. Events of the last 24 hours have been noted. Spoke with with SIMBA regarding patient's clinical picture after evaluating and examining the patient independently. I performed a substantial part of the MDM during this patient's care today. I personally made or approved the documented management plan and acknowledge its risk of complications. I agree with the findings and documentation provided in the SIMBA's notes. Patient with E coli - ESBL E coli. Continue with IV antibiotics. Family deciding if they can not pay for outpatient IV antibiotics. <Elder Goncalves - Last Filed: 12/01/23 07:23>
[2023-11-28] MEDS: Meropenem 500 MG in NA CHLORIDE 0.9% 100 ML IV ONE (11:44)
--- NOTE | 2023-11-28 13:24 | P.DS ---
Admission Date: 11/27/23 Discharge Date: 11/30/23 Disposition: ROUTINE DISCHARGE Discharge Condition: GOOD Reason for Admission: UTI Brief History of Present Illness: 58 yrs old Female with past medical history of hypothyroidism who was seen in the ER 2 days ago with flank pain bilaterally which has been progressively getting worse associated with surgery fever, and malaise and was diagnosed with pyelonephritis and was treated with Cipro and discharged home. Her urine culture came back positive for ESBL and was called back for IV antibiotic. Patient still has flank pains. Denies any dysuria. No nausea vomiting or diarrhea. Denies any chest pain or shortness of breath. Patient was assessed in the ER and was started on meropenem for ESBL and was admitted for further management - Physical Exam General: Alert, In no apparent distress, Oriented x3 HEENT: Atraumatic, Normocephalic Neck: Supple, 2+ carotid pulse no bruit Respiratory: Clear to auscultation bilaterally, Normal air movement Cardiovascular: Normal pulses, Regular rate/rhythm, Normal S1 S2 Capillary refill: <2 Seconds Gastrointestinal: Soft and benign, W/out hepatosplenomegaly Musculoskeletal: No clubbing, No swelling Integumentary: No rashes, No breakdown, No tenderness/swelling Neurological: Normal speech, Normal strength at 5/5 x4 extr, Cranial nerves 3-12 intact, Normal reflexes 2+ Lymphatics: No axilla or inguinal lymphadenopathy Hospital Course: 58 yrs old Female with past medical history of hypothyroidism who was seen in the ER 2 days ago with flank pain bilaterally which has been progressively getting worse associated with surgery fever, and malaise and was diagnosed with pyelonephritis and was treated with Cipro. Urine culture shows ESBL Ecoli, she will need week of IV Antibiotic (Invance gram daily) to be infused in emergency room daily. IV midline to be placed prior to discharge, remove midline after 7th dose, Follow up with [facility] after discharge,. PROBLEM: complicated urinary tract infection ESBL Ecoli, she will need week of IV Antibiotic (Invance gram daily) to be infused in emergency room daily. mild pyelonephritis-urine/kidney infection CT abdomen pelvis suggesting mild pyelonephritis. Mild prominence of the renal pelvis bilaterally, may relate to mild hydronephrosis or extrarenal pelves, without evidence of obstruction. Supraumbilical ventral fat containing hernias. Hernia- Supraumbilical ventral fat containing hernias. incidental finding Continue home medicines as previously prescribed GOAL: Clear understanding of disease process INSTRUCTIONS: Physician Discharge Instructions: -Follow-up with PCP in 1 to 2 weeks -Please call Dr. Goncalves at [phone] if any questions regarding hospital stay -Please call nursing station at [phone] if any nursing or medication questions -Return to the emergency room if symptoms worsen Diet: ADA, low sodium Activity: Fall precautions Vital Signs/Physical Exam: Temp Pulse Resp BP Pulse Ox 97.3 F 60 15 95/63 97 11/28/23 09:55 11/28/23 09:55 11/28/23 09:55 11/28/23 09:55 11/28/23 09:55 Laboratory Data at Discharge: WBC 6.80 thou/uL (4.3-10.9) 11/28/23 02:36 Hgb 11.6 g/dL (12.0-15.0) L 11/28/23 02:36 Hct 32.6 % (36.0-45.0) L 11/28/23 02:36 Plt Count 298 thou/uL (152-406) 11/28/23 02:36 PT 12.3 SECONDS (9.5-12.5) 11/27/23 18:16 INR 1.12 11/27/23 18:16 APTT 32.1 SECONDS (24.3-36.9) 11/27/23 18:16 Sodium 139 mEq/L (136-145) 11/28/23 02:36 Potassium 4.0 mEq/L (3.5-5.1) D 11/28/23 02:36 BUN 9 mg/dL (7-18) 11/28/23 02:36 Creatinine 0.67 mg/dL (0.55-1.02) 11/28/23 02:36 Glucose 97 mg/dL (74-106) 11/28/23 02:36 Total Bilirubin 0.4 mg/dL (0.2-1.0) 11/28/23 02:36 AST 27 U/L (15-37) 11/28/23 02:36 ALT 60 U/L (13-56) H 11/28/23 02:36 Alkaline Phosphatase 139 U/L (45-117) H 11/28/23 02:36 Home Medications: Acetaminophen [Tylenol*] 650 mg PO Q4HP PRN tab 11/28/23 Promethazine Tab [Phenergan] 25 mg PO Q6HP PRN 7 Days #20 tab 11/28/23 New Medications: Promethazine Tab [Phenergan] 25 mg PO Q6HP PRN 7 Days #20 tab PRN Reason: Nausea / Vomiting Physician Discharge Instructions: 58 yrs old Female with past medical history of hypothyroidism who was seen in the ER 2 days ago with flank pain bilaterally which has been progressively getting worse. Reported malaise and was diagnosed with pyelonephritis and was treated with Cipro. infection was getting worse she return to Emergency Department. Prior ED11/24 Urine culture shows ESBL Ecoli, failled op treatment Cipro, she will need week of IV Antibiotic (Invance gram daily) to be infused in emergency room daily. IV midline to be placed prior to discharge, remove midline after 7th dose, Follow up with [facility] after discharge,. She may take over the counter tylenol or ibuprofen as directed for pain. She will need to follow up at [facility] in 1-2 weeks after discharge. PROBLEM: complicated urinary tract infection ESBL Ecoli, she will need week of IV Antibiotic (Invance gram daily) to be infused in emergency room daily. mild pyelonephritis-urine/kidney infection CT abdomen pelvis suggesting mild pyelonephritis. Mild prominence of the renal pelvis bilaterally, may relate to mild hydronephrosis or extrarenal pelves, without evidence of obstruction. Supraumbilical ventral fat containing hernias. Hernia- Supraumbilical ventral fat containing hernias. incidental finding Continue home medicines as previously prescribed GOAL: Clear understanding of disease process INSTRUCTIONS: Physician Discharge Instructions: -Follow-up with PCP in 1 to 2 weeks -Please call Dr. Goncalves at [phone] if any questions regarding hospital stay -Please call nursing station at [phone] if any nursing or medication quest ions -Return to the emergency room if symptoms worsen Diet: ADA, low sodium Activity: Fall precautions Diet: Regular Activity: Fall precautions Followup: NONE,NONE [Primary Care Provider] - Time spent managing pt's care (in minutes): 55
[2023-11-28] MEDS: Meropenem 1,000 MG in NA CHLORIDE 0.9% 100 ML IV SCH (15:00)
[2023-11-28] MEDS ORDERED: Meropenem 1,000 MG in NA CHLORIDE 0.9% 100 ML IV SCH (17:00)
[2023-11-28] MEDS: Mupirocin NASAL 2 APPL/1 GM TUBE NAS SCH (20:57)
[2023-11-29 04:13] LABS: Anion Gap 5.3 mEq/L (5.0-15.0); Magnesium 2.2 mg/dL (1.6-2.4); Potassium 4.3 mEq/L (3.5-5.1)
--- NOTE | 2023-11-29 08:51 | P.PN ---
Date of Service: 11/29/23 Chief Complaint: UTI Australian-speaking, used trade marker for discharge plan admitted with acute pyelonephritis, plan to Transition to IV Unasyn will need outpatient Unasyn for 1 week pending approval with SS Review of Systems Per HPI Physical Examination - Vital Signs Reviewed - Physical Exam General: Alert, In no apparent distress, Oriented x3 Neck: Supple, 2+ carotid pulse no bruit Respiratory: Unlabored, clear Cardiovascular: Normal pulses, Regular rate/rhythm Capillary refill: <2 Seconds Gastrointestinal: Normal bowel sounds, Musculoskeletal: No clubbing Neurological: Normal speech Assessment And Plan Acute pyelonephritis Failed outpatient antibiotic Cipro Urine culture positive for ESBL Was treated with Cipro initially without response Started on meropenem Monitor closely IV hydration as needed analgesia Will need IV Unasyn for 1 week-discussed with dialysis social worker to set up patient will go to the ER daily for 7 days for IV antibiotics, discussed with trade marker with patient and family Hypokalemia Replace potassium Trend electrolyte Microcytic anemia Trend H&H 12.411.6 Hypothyroidism Continue home medications GI/DVT prophylaxis Advanced directive full code Discharge Plan: Home - Code Status/Comfort Care Code Status: Full Code Critical Care: No Time Spent Managing PTS Care (In Minutes): 35 <Chandrika Matthews - Last Filed: 11/30/23 14:05> Patient was seen and examined. Events of the last 24 hours have been noted. Spoke with with SIMBA regarding patient's clinical picture after evaluating and examining the patient independently. I performed a substantial part of the MDM during this patient's care today. I personally made or approved the documented management plan and acknowledge its risk of complications. I agree with the findings and documentation provided in the SIMBA's notes. Patient completed day number 3 of IV antibiotics. She needs a total 7 days. Will continue monitoring patient's clinical status. Family trying to make arrangements for home IV antibiotic regimen. <Elder Goncalves - Last Filed: 12/01/23 07:24>
[2023-11-29 21:58] LABS: Specific Gravity 1.012 (1.005-1.030); Sqamous Epithelial <5 /HPF (None Seen); Urine Bacteria None Seen /HPF (<20); Urine Bilirubin NEGATIVE (Negative); Urine Blood Negative (Negative); Urine Clarity Clear (Clear); Urine Color Light-Yellow (Yellow); Urine Culture Reflex Order NOT NEEDED; Urine Glucose NEGATIVE (Negative); Urine Ketones NEGATIVE (Negative); Urine Microscopic Reflex YN ORDER UMIC; Urine Nitrite NEGATIVE (Negative); Urine Protein NEGATIVE (Negative); Urine RBC <5 /HPF (None Seen); Urine Urobilinogen Normal (Normal); Urine WBC <5 /HPF (<5); Urine pH 7.5 (5.0-7.0)
[2023-11-30 04:03] LABS: Anion Gap 6.9 mEq/L (5.0-15.0); Magnesium 2.4 mg/dL (1.6-2.4); Potassium 3.9 mEq/L (3.5-5.1)
[2023-11-30] MEDS: POTASSIUM CL SA 10 MEQ TAB PO ONE (08:58)
--- NOTE | 2023-11-30 14:11 | P.PN ---
Date of Service: 11/30/23 Chief Complaint: UTI family at bedside, afebrile plan to Transition to IV Unasyn will need outpatient Unasyn for 1 week pending approval with SS Review of Systems Per HPI Physical Examination - Vital Signs Reviewed - Physical Exam General: Alert oriented x 3, afebrile Neck: Supple, 2+ carotid pulse no bruit Respiratory: equal unlabored Cardiovascular: Normal pulses, Capillary refill: <2 Seconds Gastrointestinal: Normal bowel sounds, nontender Musculoskeletal: No clubbing Neurological: Normal speech Assessment And Plan Acute pyelonephritis Failed outpatient antibiotic Cipro Urine culture positive for ESBL Was treated with Cipro initially without response Started on meropenem Monitor closely IV hydration as needed analgesia Will need IV Unasyn for 1 week-discussed with rn social services to set up patient will go to the ER daily for 7 days for IV antibiotics, discussed with brew house supervisor with patient and family Hypokalemia Replace potassium Trend electrolyte Microcytic anemia Trend H&H 12.411.6 Hypothyroidism Continue home medications GI/DVT prophylaxis Advanced directive full code Discharge Plan: Home - Code Status/Comfort Care Code Status: Full Code Critical Care: No Time Spent Managing PTS Care (In Minutes): 35 <Chandrika Matthews - Last Filed: 11/30/23 14:10> Patient was seen and examined. Events of the last 24 hours have been noted. Spoke with with SIMBA regarding patient's clinical picture after evaluating and examining the patient independently. I performed a substantial part of the MDM during this patient's care today. I personally made or approved the documented management plan and acknowledge its risk of complications. I agree with the findings and documentation provided in the SIMBA's notes. Patient with E coli - ESBL E coli. Continue with IV antibiotics. Patient needs to complete a total 7 days. Tomorrow will make day 4. Patient will need 3 additional days afterwards. Once this is completed then patient can go home. Family to make arrangements for home IV antibiotics. <Elder Goncalves - Last Filed: 12/01/23 07:24>
[2023-12-01 05:52] LABS: Magnesium 2.3 mg/dL (1.6-2.4)
--- NOTE | 2023-12-01 12:40 | P.PN ---
Subjective Date of Service: 12/01/23 Chief Complaint: UTI Pt is resting comfortably in bed. She denies any fever or chills. Pt is getting iv merrem fof ESBL UTI. No other complaints. Review of Systems General: Unremarkable Eyes: Unremarkable ENT: Unremarkable Respiratory: Unremarkable Cardiovascular: Unremarkable Gastrointestinal: Unremarkable Genitourinary: Unremarkable Musculoskeletal: Unremarkable Integumentary: Unremarkable Neurological: Unremarkable Lymphatics: Unremarkable Physical Examination - Vital Signs Temperature: 97.6 F Blood Pressure: 103/64 Pulse: 61 Respirations: 16 Pulse Ox (%): 96 - Physical Exam General: Alert, In no apparent distress, Oriented x3 HEENT: Atraumatic, Normocephalic, PERRLA Neck: Supple, 2+ carotid pulse no bruit, JVD not distended Respiratory: Clear to auscultation bilaterally, Normal air movement Cardiovascular: No edema, Normal pulses, Regular rate/rhythm Capillary refill: <2 Seconds Gastrointestinal: Normal bowel sounds, Soft and benign, Non-distended Musculoskeletal: No clubbing, No swelling, No contractures Integumentary: No rashes, No breakdown, No significant lesion Neurological: Normal gait, Normal speech, Normal strength at 5/5 x4 extr Lymphatics: No axilla or inguinal lymphadenopathy Assessment And Plan - Plan Acute pyelonephritis: Pt failed outpt Cipro. Will continue iv merrem for the ESBL UTI. Considering iv Unasyn for 1 week. Pt will go to the ER for 7 days for iv abx. Hypokalemia: K is 4. Will monitor. Micocytic anemia: hgb is 11.6. Will monitor H/H. Hypothyroidism: Continue synthroid GI ppx: protonix DVT ppx: SCD Code: full code Dispo: Pending hospital course.
--- NOTE | 2023-12-01 15:06 | EKG ---
Test Date: 2023-11-27 Test Time: 18:10:33 Maternal Fetal Physician: CONSTANCE MEASUREMENT RESULTS: Intervals: Rate: 74 AL: 154 QRSD: 86 QT: 370 QTc: 410 [place]: P: 59 AL: 154 QRS: 92 T: 52 INTERPRETIVE STATEMENTS: Normal sinus rhythm Rightward axis Low voltage QRS Cannot rule out Anterior infarct, age undetermined Abnormal ECG Compared to ECG 11/27/2023 18:09:46 No significant changes Electronically Signed On 12-01-23 14:55:20 CDT by Jose Mireles
--- NOTE | 2023-12-01 15:06 | EKG ---
Test Date: 2023-11-27 Test Time: 18:09:46 Operations And Maintenance Technician: CONSTANCE MEASUREMENT RESULTS: Intervals: Rate: 76 FL: 152 QRSD: 88 QT: 380 QTc: 427 [place]: P: 61 FL: 152 QRS: 92 T: 38 INTERPRETIVE STATEMENTS: Normal sinus rhythm Rightward axis Low voltage QRS Cannot rule out Anterior infarct, age undetermined Abnormal ECG No previous ECG available for comparison Electronically Signed On 12-01-23 14:55:21 CDT by Jose Mireles
[2023-12-02 04:32] LABS: Absolute Eosinophils 0.2 K/uL (0-0.5); Absolute Lymphocytes (CBC) 1.8 K/uL (0.7-4.9); Absolute Monocytes 0.5 K/uL (0.1-1.3); Absolute Neutrophil 5.2 K/uL (1.8-8.0); Basophils % 0.5 % (0-1.3); Eosinophils % 2.3 % (0-4.4); Hematocrit 30.9 % (36.0-45.0); Hemoglobin 10.9 g/dL (12.0-15.0); Lymphocytes % 23.6 % (15.3-44.8); MCH 31.9 pg (27.0-35.0); MCHC 35.2 g/dL (32.0-36.0); MCV 90.6 fL (80-100); MPV 6.4 fL (7.6-11.3); Monocytes % 6.2 % (3.3-12.3); Neutrophils % 67.4 % (41.7-73.7); Platelets 334 thou/uL (152-406); RBC Red Blood Cell Count 3.41 M/uL (3.86-4.86); Red Cell Distribution Width 14.1 % (12.1-15.2)
--- NOTE | 2023-12-02 12:20 | P.PN ---
Subjective Date of Service: 12/02/23 Chief Complaint: UTI Pt is resting comfortably in bed. She denies any fever or chills. Pt is getting iv merrem for ESBL UTI. No other complaints. Review of Systems General: Unremarkable Eyes: Unremarkable ENT: Unremarkable Respiratory: Unremarkable Cardiovascular: Unremarkable Gastrointestinal: Unremarkable Genitourinary: Unremarkable Musculoskeletal: Unremarkable Integumentary: Unremarkable Neurological: Unremarkable Lymphatics: Unremarkable Physical Examination - Vital Signs Temperature: 98.2 F Blood Pressure: 102/63 Pulse: 61 Respirations: 12 Pulse Ox (%): 97 - Physical Exam General: Alert, In no apparent distress, Oriented x3 HEENT: Atraumatic, Normocephalic, PERRLA Neck: Supple, 2+ carotid pulse no bruit, JVD not distended Respiratory: Clear to auscultation bilaterally, Normal air movement Cardiovascular: No edema, Normal pulses, Regular rate/rhythm, Normal S1 S2 Capillary refill: <2 Seconds Gastrointestinal: Normal bowel sounds, Soft and benign, Non-distended Musculoskeletal: No clubbing, No swelling, No contractures Integumentary: No rashes, No breakdown, No significant lesion Neurological: Normal speech, Normal strength at 5/5 x4 extr, Normal tone, Sensation intact Lymphatics: No axilla or inguinal lymphadenopathy Assessment And Plan - Plan Acute pyelonephritis: Pt failed outpt Cipro. Will continue iv merrem ( day 5) for the ESBL UTI. Considering iv Unasyn for 1 week. Pt will go to the ER for 7 days for iv abx. Hypokalemia: K is 4. Will monitor. Micocytic anemia: hgb is 10.9 <- 11.6. Will monitor H/H. Hypothyroidism: Continue synthroid GI ppx: protonix DVT ppx: SCD Code: full code Dispo: Pending hospital course.
[2023-12-03 05:57] LABS: Absolute Eosinophils 0.2 K/uL (0-0.5); Absolute Lymphocytes (CBC) 1.9 K/uL (0.7-4.9); Absolute Monocytes 0.3 K/uL (0.1-1.3); Absolute Neutrophil 4.5 K/uL (1.8-8.0); Basophils % 0.7 % (0-1.3); Eosinophils % 3.1 % (0-4.4); Hematocrit 31.6 % (36.0-45.0); Hemoglobin 11.2 g/dL (12.0-15.0); Lymphocytes % 27.4 % (15.3-44.8); MCHC 35.4 g/dL (32.0-36.0); MCV 90.4 fL (80-100); MPV 6.3 fL (7.6-11.3); Monocytes % 4.3 % (3.3-12.3); Neutrophils % 64.5 % (41.7-73.7); Nucleated Red Blood Cells % 0.2 % (0-0); Platelets 352 thou/uL (152-406); Red Cell Distribution Width 14.3 % (12.1-15.2)
[2023-12-03 06:10] LABS: Anion Gap 6.1 mEq/L (5.0-15.0); Potassium 4.1 mEq/L (3.5-5.1)
--- NOTE | 2023-12-03 12:04 | P.PN ---
Subjective Date of Service: 12/03/23 Chief Complaint: UTI Pt is resting comfortably in bed. She denies any fever or chills. Pt is getting iv merrem for ESBL UTI. Will complete abx tomorrow. No other complaints. Review of Systems General: Unremarkable Eyes: Unremarkable ENT: Unremarkable Respiratory: Unremarkable Cardiovascular: Unremarkable Gastrointestinal: Unremarkable Genitourinary: Unremarkable Musculoskeletal: Unremarkable Integumentary: Unremarkable Neurological: Unremarkable Lymphatics: Unremarkable Physical Examination - Vital Signs Temperature: 98.2 F Blood Pressure: 98/56 Pulse: 56 Respirations: 15 Pulse Ox (%): 96 - Physical Exam General: Alert, In no apparent distress, Oriented x3 HEENT: Atraumatic, Normocephalic, PERRLA Neck: Supple, 2+ carotid pulse no bruit Respiratory: Clear to auscultation bilaterally, Normal air movement Cardiovascular: No edema, Normal pulses, Regular rate/rhythm, Normal S1 S2 Capillary refill: <2 Seconds Gastrointestinal: Normal bowel sounds, Soft and benign, Non-distended Musculoskeletal: No clubbing, No swelling, No contractures Integumentary: No rashes, No breakdown, No significant lesion Neurological: Normal gait, Normal speech, Normal strength at 5/5 x4 extr, Normal tone, Sensation intact Lymphatics: No axilla or inguinal lymphadenopathy - Studies Microbiology Data (last 24 hrs): 11/27/23 18:30 Blood - Blood Aerobic Blood Culture - Final No growth in 5 days. 11/27/23 18:30 Blood - Blood Anaerobic Blood Culture - Final No growth in 5 days. 11/27/23 18:16 Blood - Blood Aerobic Blood Culture - Final No growth in 5 days. 11/27/23 18:16 Blood - Blood Anaerobic Blood Culture - Final No growth in 5 days. Assessment And Plan - Plan Acute pyelonephritis: Pt failed outpt Cipro. Will continue iv merrem ( day 6 of 7) for the ESBL UTI. Hypokalemia: K is 4.1. Will monitor. Micocytic anemia: hgb is 11.2 <- 10.9 <- 11.6. Will monitor H/H. Hypothyroidism: Continue synthroid GI ppx: protonix DVT ppx: SCD Code: full code Dispo: Pending hospital course.
[2023-12-04 06:21] LABS: Absolute Eosinophils 0.2 K/uL (0-0.5); Absolute Monocytes 0.4 K/uL (0.1-1.3); Absolute Neutrophil 3.9 K/uL (1.8-8.0); Basophils % 0.5 % (0-1.3); Eosinophils % 3.4 % (0-4.4); Hematocrit 31.7 % (36.0-45.0); Hemoglobin 10.9 g/dL (12.0-15.0); Lymphocytes % 30.5 % (15.3-44.8); MCH 31.3 pg (27.0-35.0); MCHC 34.2 g/dL (32.0-36.0); MCV 91.5 fL (80-100); MPV 6.6 fL (7.6-11.3); Monocytes % 5.8 % (3.3-12.3); Neutrophils % 59.8 % (41.7-73.7); Platelets 341 thou/uL (152-406); RBC Red Blood Cell Count 3.46 M/uL (3.86-4.86); Red Cell Distribution Width 14.3 % (12.1-15.2)
[2023-12-04 12:11] VITALS: O2SAT 99
--- NOTE | 2023-12-04 12:18 | P.DS ---
Admission Date: 11/27/23 Discharge Date: 12/04/23 Disposition: ROUTINE DISCHARGE Discharge Condition: GOOD Reason for Admission: UTI Brief History of Present Illness: 58 yrs old Female with past medical history of hypothyroidism who was seen in the ER 2 days ago with flank pain bilaterally which has been progressively getting worse associated with surgery fever, and malaise and was diagnosed with pyelonephritis and was treated with Cipro and discharged home. Her urine culture came back positive for ESBL and was called back for IV antibiotic. Patient still has flank pains. Denies any dysuria. No nausea vomiting or diarrhea. Denies any chest pain or shortness of breath. Patient was assessed in the ER and was started on meropenem for ESBL and was admitted for further management Hospital Course: Pt is a 58yo female with past medical history of hypothyroidism who was seen in the ER 2 days before this admission with bilateral flank pain which progressively worsened to be associated with fever and malaise. Pt was diagnosed with pyelonephritis and discharged with Cipro. Her urine culture came back positive for ESBL and she was called back for IV antibiotic. On admission, pt still had flank pain. We started iv merrem for 1 week and the symptoms resolved. Pt completed the abx while inpatient because she could not afford home health with iv abx infusion. Pt was in NAD prior to discharge. Vital Signs/Physical Exam: Temp Pulse Resp BP Pulse Ox 96.3 F L 66 16 109/65 97 12/04/23 08:00 12/04/23 08:00 12/04/23 08:00 12/04/23 08:00 12/04/23 08:00 Laboratory Data at Discharge: WBC 6.50 thou/uL (4.3-10.9) 12/04/23 06:00 Hgb 10.9 g/dL (12.0-15.0) L 12/04/23 06:00 Hct 31.7 % (36.0-45.0) L 12/04/23 06:00 Plt Count 341 thou/uL (152-406) 12/04/23 06:00 PT 12.3 SECONDS (9.5-12.5) 11/27/23 18:16 INR 1.12 11/27/23 18:16 APTT 32.1 SECONDS (24.3-36.9) 11/27/23 18:16 Sodium 141 mEq/L (136-145) 12/04/23 06:00 Potassium 4.0 mEq/L (3.5-5.1) 12/04/23 06:00 BUN 9 mg/dL (7-18) 12/04/23 06:00 Creatinine 0.53 mg/dL (0.55-1.02) L 12/04/23 06:00 Glucose 95 mg/dL (74-106) 12/04/23 06:00 Phosphorus 2.9 mg/dL (2.5-4.9) 11/30/23 11:55 Magnesium 2.3 mg/dL (1.6-2.4) 12/01/23 04:53 Total Bilirubin 0.4 mg/dL (0.2-1.0) 11/28/23 02:36 AST 27 U/L (15-37) 11/28/23 02:36 ALT 60 U/L (13-56) H 11/28/23 02:36 Alkaline Phosphatase 139 U/L (45-117) H 11/28/23 02:36 Home Medications: Acetaminophen [Tylenol*] 650 mg PO Q4HP PRN tab 11/28/23 Promethazine Tab [Phenergan] 25 mg PO Q6HP PRN 7 Days #20 tab 11/28/23 New Medications: Promethazine Tab [Phenergan] 25 mg PO Q6HP PRN 7 Days #20 tab PRN Reason: Nausea / Vomiting Physician Discharge Instructions: 58 yrs old Female with past medical history of hypothyroidism who was seen in the ER 2 days ago with flank pain bilaterally which has been progressively getting worse. Reported malaise and was diagnosed with pyelonephritis and was treated with Cipro. infection was getting worse she return to Emergency Department. Prior ED6 Urine culture shows ESBL Ecoli, failled op treatment Cipro, she will need week of IV Antibiotic (Invance gram daily) to be infused in emergency room daily. IV midline to be placed prior to discharge, remove midline after 7th dose, Follow up with [facility] after discharge,. She may take over the counter tylenol or ibuprofen as directed for pain. She will need to follow up at [facility] in 1-2 weeks after discharge. PROBLEM: complicated urinary tract infection ESBL Ecoli, she will need week of IV Antibiotic (Invance gram daily) to be infused in emergency room daily. mild pyelonephritis-urine/kidney infection CT abdomen pelvis suggesting mild pyelonephritis. Mild prominence of the renal pelvis bilaterally, may relate to mild hydronephrosis or extrarenal pelves, without evidence of obstruction. Supraumbilical ventral fat containing hernias. Hernia- Supraumbilical ventral fat containing hernias. incidental finding Continue home medicines as previously prescribed GOAL: Clear understanding of disease process INSTRUCTIONS: Physician Discharge Instructions: -Follow-up with PCP in 1 to 2 weeks -Please call Dr. Goncalves at [phone] if any questions regarding hospital stay -Please call nursing station at [phone] if any nursing or medication questions -Return to the emergency room if symptoms worsen Diet: ADA, low sodium Activity: Fall precautions Diet: AHA Activity: Ad kenroy Followup: NONE,NONE [Primary Care Provider] -
[2023-12-04 17:24] VITALS: BP 110/74; TEMP 97.4
== END 2023-12-04 17:21 | disposition home or self-care (01) | DRG 690 ==
LOC: ER 17:37 → ERHOLD 20:11 → 2ND 21:31
PROVIDERS: ADMIT Family Medicine; ATTEND Hospitalist
PROC: 02HV33Z Insertion of Infusion Device into Superior Vena Cava, Percutaneous Approach (ICD-10-PCS; principal; 2023-11-28)
DX: N10 Acute pyelonephritis (principal); Z16.12 Extended spectrum beta lactamase (ESBL) resistance; E03.9 Hypothyroidism, unspecified; E87.6 Hypokalemia; D50.9 Iron deficiency anemia, unspecified; B96.20 Unspecified Escherichia coli [E. coli] as the cause of diseases classified elsewhere; K43.9 Ventral hernia without obstruction or gangrene
CPT/HCPCS: 36415; 74177; 80048; 80053; 81001; 81003; 83605; 83735; 84100; 85025; 85610; 85730; 87040; 93005; 96365; 99285; J1650; J2185; J2405; J7030; Q9967